=== PATIENT | male | born 1995 | race Caucasian/White ===

== ENCOUNTER 2016-11-30 23:51 | Emergency (ER) | payer BC, OTHER ==
[2016-12-01 00:01] VITALS: BP 137/86; PULSE 112; RESP 16; TEMP 98.8; O2SAT 96
--- NOTE | 2016-12-01 00:14 | PD ---
HPI Chief Complaint: Medical Clearance Time Seen by Provider: 00:11 Travel History International Travel<30 days: No Contact w/Intl Traveler<30days: No History of Present Illness HPI Patient is a 21-year-old male presenting to the emergency Department voluntarily for suicidal ideations. Patient states he did not feel safe alone. He reports that his goal tonight was to overdose on heroin however he did contact his sponsor in [place] who advised him to call 911. Patient does report a previous history of suicide attempt at age 17 where he did attempt to overdose. He reports a history of depression, he's been off of Effexor for the last month. He reports issues with his significant other that is causing him distress. He states that he drank 9-10 beers prior to arrival since 6 PM. Patient reports a history of substance abuse, type 1 diabetes. Patient has an insulin pump on his right posterior upper arm and states that it is out of insulin. He denies any nausea, vomiting, abdominal pain. He states his last A1c 4 months ago was 9.2%. He endorses tobacco use, alcohol use and occasional marijuana. He denies any visual auditory hallucinations. PFSH Past Medical History Depression: Yes Diabetes: Yes (1) Medical other: Yes (substance abuse) Social History Alcohol Use: Yes Tobacco Use: Yes Substance Use: Yes (marijuana) Allergies-Medications (Allergen,Severity, Reaction): Coded Allergies: No Known Allergies (Unverified , 12/01/16) Reported Meds & Prescriptions Reported Meds & Active Scripts Active Reported Effexor (Venlafaxine HCl) 50 Mg Tab 50 Mg PO Q12H Review of Systems Except as stated in HPI: all other systems reviewed are Neg Cardiovascular: No: Chest Pain or Discomfort Respiratory: No: Shortness of Breath Gastrointestinal: No: Nausea, Vomiting, Abdominal Pain Genitourinary: No: Frequency Neurologic: No: Dizziness, Syncope Psychiatric: Positive: Depression, Suicidal Ideations, Substance Abuse Physical Exam Narrative GENERAL: Well-developed, well-nourished, alert male. Resting comfortably in no acute distress. SKIN: Focused skin assessment warm/dry. HEAD: Atraumatic. Normocephalic. EYES: Pupils equal and round. No scleral icterus. No injection or drainage. ENT: No nasal bleeding or discharge. Mucous membranes pink and moist. NECK: Trachea midline. No JVD. CARDIOVASCULAR: Tachycardic. No murmur appreciated. RESPIRATORY: No accessory muscle use. Clear to auscultation. Breath sounds equal bilaterally. GASTROINTESTINAL: Abdomen soft, non-tender, nondistended. Hepatic and splenic margins not palpable. MUSCULOSKELETAL: No obvious deformities. No clubbing. No cyanosis. No edema. NEUROLOGICAL: Awake and alert. No obvious cranial nerve deficits. Motor grossly within normal limits. Normal speech. PSYCHIATRIC: Appropriate mood and affect; insight and judgment normal. Data Data Last Documented VS Vital Signs Date Time Temp Pulse Resp B/P Pulse Ox O2 Delivery O2 Flow Rate FiO2 12/01/16 00:01 98.8 112 16 137/86 96 Orders Complete Blood Count With Diff (12/01/16 00:08) Comprehensive Metabolic Panel (12/01/16 00:08) Urinalysis - C+S If Indicated (12/01/16 00:08) Iv Access Insert/Monitor (12/01/16 00:08) Psych Screen (12/01/16 00:08) Sodium Chloride 0.9% Flush (Ns Flush) (12/01/16 00:15) Blood Glucose (12/01/16 00:08) Drug Screen, Random Urine (12/01/16 00:08) Alcohol (Ethanol) (12/01/16 00:08) Salicylates (Aspirin) (12/01/16 00:08) Tylenol (Acetaminophen) (12/01/16 00:08) Hemoglobin (Hgb) A1c (12/01/16 00:08) Sodium Chlor 0.9% 1000 Ml Inj (Ns 1000 M (12/01/16 00:15) Blood Glucose (12/01/16 02:26) Insulin Human Regular Inj (Novolin R Inj (12/01/16 03:00) Labs Laboratory Tests Test 12/01/16 12/01/16 00:25 01:20 White Blood Count 5.8 TH/MM3 Red Blood Count 4.59 MIL/MM3 Hemoglobin 15.0 GM/DL Hematocrit 42.7 % Mean Corpuscular Volume 93.0 FL Mean Corpuscular Hemoglobin 32.7 PG Mean Corpuscular Hemoglobin 35.1 % Concent Red Cell Distribution Width 12.6 % Platelet Count 282 TH/MM3 Mean Platelet Volume 9.1 FL Neutrophils (%) (Auto) 67.0 % Lymphocytes (%) (Auto) 21.4 % Monocytes (%) (Auto) 9.1 % Eosinophils (%) (Auto) 1.7 % Basophils (%) (Auto) 0.8 % Neutrophils # (Auto) 3.9 TH/MM3 Lymphocytes # (Auto) 1.2 TH/MM3 Monocytes # (Auto) 0.5 TH/MM3 Eosinophils # (Auto) 0.1 TH/MM3 Basophils # (Auto) 0.0 TH/MM3 CBC Comment DIFF FINAL Differential Comment Sodium Level 137 MEQ/L Potassium Level 3.6 MEQ/L Chloride Level 101 MEQ/L Carbon Dioxide Level 26.9 MEQ/L Anion Gap 9 MEQ/L Blood Urea Nitrogen 12 MG/DL Creatinine 1.01 MG/DL Estimat Glomerular Filtration 92 ML/MIN Rate Random Glucose 236 MG/DL Calcium Level 9.5 MG/DL Total Bilirubin 0.6 MG/DL Aspartate Amino Transf 18 U/L (AST/SGOT) Alanine Aminotransferase 29 U/L (ALT/SGPT) Alkaline Phosphatase 122 U/L Total Protein 7.7 GM/DL Albumin 4.2 GM/DL Salicylates Level LESS THAN 1.7 MG/DL Acetaminophen Level LESS THAN 2.0 MCG/ML Ethyl Alcohol Level 117 MG/DL Urine Color LIGHT-YELLOW Urine Turbidity CLEAR Urine pH 6.5 Urine Specific [place] 1.011 Urine Protein NEG mg/dL Urine Glucose (UA) 1000 mg/dL Urine Ketones 10 mg/dL Urine Occult Blood NEG Urine Nitrite NEG Urine Bilirubin NEG Urine Urobilinogen LESS THAN 2.0 MG/DL Urine Leukocyte Esterase NEG Urine WBC 1 /hpf Microscopic Urinalysis Comment CULT NOT INDICATED Urine Opiates Screen NEG Urine Barbiturates Screen NEG Urine Amphetamines Screen NEG Urine Benzodiazepines Screen NEG Urine Cocaine Screen NEG Urine Cannabinoids Screen NEG [facility] Medical Decision Making Medical Screen Exam Complete: Yes Emergency Medical Condition: Yes Interpretation(s) Laboratory Tests Test 12/01/16 12/01/16 00:25 01:20 White Blood Count 5.8 TH/MM3 Red Blood Count 4.59 MIL/MM3 Hemoglobin 15.0 GM/DL Hematocrit 42.7 % Mean Corpuscular Volume 93.0 FL Mean Corpuscular Hemoglobin 32.7 PG Mean Corpuscular Hemoglobin 35.1 % Concent Red Cell Distribution Width 12.6 % Platelet Count 282 TH/MM3 Mean Platelet Volume 9.1 FL Neutrophils (%) (Auto) 67.0 % Lymphocytes (%) (Auto) 21.4 % Monocytes (%) (Auto) 9.1 % Eosinophils (%) (Auto) 1.7 % Basophils (%) (Auto) 0.8 % Neutrophils # (Auto) 3.9 TH/MM3 Lymphocytes # (Auto) 1.2 TH/MM3 Monocytes # (Auto) 0.5 TH/MM3 Eosinophils # (Auto) 0.1 TH/MM3 Basophils # (Auto) 0.0 TH/MM3 CBC Comment DIFF FINAL Differential Comment Sodium Level 137 MEQ/L Potassium Level 3.6 MEQ/L Chloride Level 101 MEQ/L Carbon Dioxide Level 26.9 MEQ/L Anion Gap 9 MEQ/L Blood Urea Nitrogen 12 MG/DL Creatinine 1.01 MG/DL Estimat Glomerular Filtration 92 ML/MIN Rate Random Glucose 236 MG/DL Calcium Level 9.5 MG/DL Total Bilirubin 0.6 MG/DL Aspartate Amino Transf 18 U/L (AST/SGOT) Alanine Aminotransferase 29 U/L (ALT/SGPT) Alkaline Phosphatase 122 U/L Total Protein 7.7 GM/DL Albumin 4.2 GM/DL Salicylates Level LESS THAN 1.7 MG/DL Acetaminophen Level LESS THAN 2.0 MCG/ML Ethyl Alcohol Level 117 MG/DL Urine Color LIGHT-YELLOW Urine Turbidity CLEAR Urine pH 6.5 Urine Specific [place] 1.011 Urine Protein NEG mg/dL Urine Glucose (UA) 1000 mg/dL Urine Ketones 10 mg/dL Urine Occult Blood NEG Urine Nitrite NEG Urine Bilirubin NEG Urine Urobilinogen LESS THAN 2.0 MG/DL Urine Leukocyte Esterase NEG Urine WBC 1 /hpf Microscopic Urinalysis Comment CULT NOT INDICATED Urine Opiates Screen NEG Urine Barbiturates Screen NEG Urine Amphetamines Screen NEG Urine Benzodiazepines Screen NEG Urine Cocaine Screen NEG Urine Cannabinoids Screen NEG Vital Signs Date Time Temp Pulse Resp B/P Pulse Ox O2 Delivery O2 Flow Rate FiO2 12/01/16 00:01 98.8 112 16 137/86 96 Differential Diagnosis Hyperglycemia versus DKA versus substance abuse versus mood disorder versus suicidal ideations versus electrolyte abnormality versus other Narrative Course Patient is a 21-year-old male presenting to emergency Department voluntarily for suicidal ideations. He has a history of suicide attempt at age 17. He denies any physical complaints. Patient is a type I diabetic with insulin pump to his right upper arm posteriorly. He states it is out of insulin as of 8 PM tonight. He denies any nausea, vomiting, abdominal pain. He appears well and is cooperative. Imaging ordered and pending. Discussed with patient the process for a clearance and psychiatric evaluation. He verbalized understanding. He was mildly tachycardic on arrival, IV fluids ordered and pending. [id number]-patient verbalized to RN that he wanted to leave and do with this on his own. Patient sad score was 8, this coupled with his previous suicide attempt and current plan a Munoz act was initiated. Blood glucose is 290, 8 units of subcutaneous insulin ordered. Vital signs reassessed, heart rate in the 80s. Labs reviewed, patient is medically clear for psychiatric evaluation at this time. Diagnosis Primary Impression: Medical clearance for psychiatric admission Additional Impressions: Alcohol intoxication Qualified Code: F10.920 - Alcohol intoxication, uncomplicated Suicidal ideations Condition: Stable Preethi Pritchard Dec 01, 2016 00:14
[2016-12-01] MEDS ORDERED: SODIUM CHLORIDE 0.9% FLUSH 10 ML FLUSH IVF PRN (00:15)
[2016-12-01] MEDS ORDERED: SODIUM CHLOR 0.9% 1000 ML INJ 1,000 ML IV ONE (00:15)
[2016-12-01 00:52] LABS: AUTOMATED NEUTROPHIL # 3.9 TH/MM3 (1.8-7.7); BASOPHIL % 0.8 % (0.0-2.0); EOSINOPHIL # 0.1 TH/MM3 (0-0.4); EOSINOPHIL % 1.7 % (0.0-4.0); HEMATOCRIT 42.7 % (39.0-51.0); HEMO FLAGS DIFF FINAL; LYMPH % 21.4 % (9.0-44.0); LYMPHOCYTE # 1.2 TH/MM3 (1.0-4.8); MEAN CORPUSCULAR HEMOGLOBIN 32.7 PG (27.0-34.0); MEAN CORPUSCULAR HGB CONC 35.1 % (32.0-36.0); MONO % 9.1 % (0.0-8.0); PLATELET COUNT 282 TH/MM3 (150-450); RED BLOOD COUNT 4.59 MIL/MM3 (4.50-5.90); RED CELL DISTRIBUTION WIDTH 12.6 % (11.6-17.2); WHITE BLOOD COUNT 5.8 TH/MM3 (4.0-11.0)
[2016-12-01] MEDS ORDERED: VENL50TA PO (01:21)
[2016-12-01 01:26] LABS: ALT (GPT) 29 U/L (12-78); ANION GAP 9 MEQ/L (5-15); AST (GOT) 18 U/L (15-37); BICARBONATE 26.9 MEQ/L (21.0-32.0); BLOOD UREA NITROGEN 12 MG/DL (7-18); CHLORIDE 101 MEQ/L (98-107); GLOMERULAR FILTRATION RATE 92 ML/MIN (>89); POTASSIUM 3.6 MEQ/L (3.5-5.1); SODIUM (NA) 137 MEQ/L (136-145)
[2016-12-01 01:28] LABS: ACETAMINOPHEN LESS THAN 2.0 MCG/ML (10.0-30.0); ALKALINE PHOSPHATASE 122 U/L (45-117); TOTAL BILIRUBIN ADULT 0.6 MG/DL (0.2-1.0)
[2016-12-01 02:02] LABS: AMPHETAMINE, URINE NEG (NEG); BARBITURATES, URINE NEG (NEG); COCAINE, URINE NEG (NEG)
[2016-12-01 02:13] LABS: BLOOD, URINE NEG (NEG); COMMENT (UR) CULT NOT INDICATED; CULTURE IF INDICATED CULT NOT INDICATED; GLUCOSE,URINE 1000 mg/dL (NEG); KETONE, URINE 10 mg/dL (NEG); NITRITE,URINE NEG (NEG); PH, URINE 6.5 (5.0-8.5); URINE COLOR LIGHT-YELLOW (YELLW/STRAW)
[2016-12-01 02:50] VITALS: BP 120/59; PULSE 97; RESP 16; O2SAT 96
[2016-12-01] MEDS ORDERED: INSULIN HUMAN REGULAR 1,000 UNITS/10 ML VIAL SQ ONE ×2 (03:00→15:00)
[2016-12-01 09:00] VITALS: BP 128/80; PULSE 95; RESP 18; O2SAT 98
[2016-12-01 09:54] LABS: HEMOGLOBIN A1a 1.4 %; HEMOGLOBIN A1b 2.4 %; HEMOGLOBIN Ao 79.3 %; HEMOGLOBIN LA1C 3.2 %; HEMOGLOBIN P3 4.8 %
[2016-12-01 13:42] VITALS: BP 119/63; PULSE 59; RESP 16; O2SAT 98
--- NOTE | 2016-12-01 15:14 | PD ---
History of Present Illness Chief Complaint: Medical Clearance Time Seen by Provider: 15:00 Travel History International Travel<30 Days: No Contact w/Intl Traveler<30days: No Known affected area: No Legal Status Legal Status: Munoz Act Munoz Act Comment: INTITIATED BY: CAREN HAM History of Present Illness: This is a 21-year-old male with a history of polysubstance abuse, who last night threatened to overdose on heroin. He was Munoz acted by CAREN for that reason and now states he was intoxicated when he made that threat. At the present time, he is denying any suicidal or homicidal ideation, plan or intent. He denies any psychotic symptoms. His cognition is intact and he is verbally yeison for safety. 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 He is also willing to see an outpatient therapist for further treatment. As this institution is not licensed for detox and rehabilitation, the patient's request is the least restrictive alternative. PFSH Past Medical History Anxiety: Yes Depression: Yes Diabetes: Yes (1) Patient Takes Glucophage: No Diminished Hearing: No Medical other: Yes (substance abuse) Tetanus Vaccination: Unknown Influenza Vaccination: No Past Surgical History Surgical History: No Previous Surgery Body Medical Devices: INSULIN PUMP, R POSTERIOR UPPER ARM Psychiatric History Psychiatric History Hx Psychiatric Treatment: DEPRESSION BY PCP History of Inpatient Treatment: No Guns or firearms in home: No Social History Hx Alcohol Use: Yes Hx Tobacco Use: Yes Hx Substance Use: Yes Substance Use Type: Alcohol, Crack, Heroin Hx of Substance Use Treatment: Yes Allergies-Medications (Allergen,Severity, Reaction): Coded Allergies: No Known Allergies (Unverified , 12/01/16) Reported Meds & Prescriptions Reported Meds & Active Scripts Active Reported Effexor (Venlafaxine HCl) 50 Mg Tab 50 Mg PO Q12H Review of Systems Except as stated in HPI: all other systems reviewed are Neg Exam Alert: Yes [place]: Person, Place, Date, Situation Mood: Calm Affect: Appropriate, Euthymic Speech: Clear, Logical Eye Contact: Normal Memory Intact: Immediate, Recent, Remote Insight/Judgement Adequate MDM Medical Decision Making Medical Record Reviewed: Yes Assessment/Plan Patient's Alexander act is being lifted and he is being discharged home. He was given a referral to [facility] because they can provide him with detox , rehabilitation and further treatment. The patient's cognition is intact and he is competent to verbally contract for safety. Orders Complete Blood Count With Diff (12/01/16 00:08) Comprehensive Metabolic Panel (12/01/16 00:08) Urinalysis - C+S If Indicated (12/01/16 00:08) Iv Access Insert/Monitor (12/01/16 00:08) Psych Screen (12/01/16 00:08) Sodium Chloride 0.9% Flush (Ns Flush) (12/01/16 00:15) Blood Glucose (12/01/16 00:08) Drug Screen, Random Urine (12/01/16 00:08) Alcohol (Ethanol) (12/01/16 00:08) Salicylates (Aspirin) (12/01/16 00:08) Tylenol (Acetaminophen) (12/01/16 00:08) Hemoglobin (Hgb) A1c (12/01/16 00:08) Sodium Chlor 0.9% 1000 Ml Inj (Ns 1000 M (12/01/16 00:15) Blood Glucose (12/01/16 02:26) Insulin Human Regular Inj (Novolin R Inj (12/01/16 03:00) Diet 1800 Ada Cons Carb (12/01/16 Breakfast) Diet 1800 [place] Cons Carb (12/01/16 Lunch) Insulin Human Regular Inj (Novolin R Inj (12/01/16 15:00) Results Vital Signs Date Time Temp Pulse Resp B/P Pulse Ox O2 Delivery O2 Flow Rate FiO2 12/01/16 13:42 59 16 119/63 98 Room Air 12/01/16 09:00 95 18 128/80 98 Room Air 12/01/16 02:50 97 16 120/59 96 Room Air 12/01/16 00:01 98.8 112 16 137/86 96 Laboratory Tests Test 12/01/16 12/01/16 00:25 01:20 White Blood Count 5.8 Red Blood Count 4.59 Hemoglobin 15.0 Hematocrit 42.7 Mean Corpuscular Volume 93.0 Mean Corpuscular Hemoglobin 32.7 Mean Corpuscular Hemoglobin 35.1 Concent Red Cell Distribution Width 12.6 Platelet Count 282 Mean Platelet Volume 9.1 Neutrophils (%) (Auto) 67.0 Lymphocytes (%) (Auto) 21.4 Monocytes (%) (Auto) 9.1 Eosinophils (%) (Auto) 1.7 Basophils (%) (Auto) 0.8 Neutrophils # (Auto) 3.9 Lymphocytes # (Auto) 1.2 Monocytes # (Auto) 0.5 Eosinophils # (Auto) 0.1 Basophils # (Auto) 0.0 CBC Comment DIFF FINAL Differential Comment Sodium Level 137 Potassium Level 3.6 Chloride Level 101 Carbon Dioxide Level 26.9 Anion Gap 9 Blood Urea Nitrogen 12 Creatinine 1.01 Estimat Glomerular Filtration 92 Rate Random Glucose 236 Hemoglobin A1c 8.8 Calcium Level 9.5 Total Bilirubin 0.6 Aspartate Amino Transf 18 (AST/SGOT) Alanine Aminotransferase 29 (ALT/SGPT) Alkaline Phosphatase 122 Total Protein 7.7 Albumin 4.2 Salicylates Level LESS THAN 1.7 Acetaminophen Level LESS THAN 2.0 Ethyl Alcohol Level 117 Urine Color LIGHT-YELLOW Urine Turbidity CLEAR Urine pH 6.5 Urine Specific [place] 1.011 Urine Protein NEG Urine Glucose (UA) 1000 Urine Ketones 10 Urine Occult Blood NEG Urine Nitrite NEG Urine Bilirubin NEG Urine Urobilinogen LESS THAN 2.0 Urine Leukocyte Esterase NEG Urine WBC 1 Microscopic Urinalysis Comment CULT NOT INDICATED Urine Opiates Screen NEG Urine Barbiturates Screen NEG Urine Amphetamines Screen NEG Urine Benzodiazepines Screen NEG Urine Cocaine Screen NEG Urine Cannabinoids Screen NEG Diagnosis Primary Impression: Adjustment disorder with mixed disturbance of emotions and conduct Condition: Stable Jovi uHdson MD Dec 01, 2016 15:14
== END 2016-12-01 15:59 | disposition home or self-care (01) ==
LOC: NEPD 23:51
DX: F43.25 Adjustment disorder with mixed disturbance of emotions and conduct (principal); F10.120 Alcohol abuse with intoxication, uncomplicated; E11.9 Type 2 diabetes mellitus without complications; Z72.0 Tobacco use
CPT/HCPCS: 80053; 80307; 81001; 83036; 85025; 96372; 99284; J1815; J7030

== ENCOUNTER 2017-06-10 22:13 | Emergency (ER) | payer BC, OTHER ==
[~2017-06-10] VITALS: Ht 177.8 cm; Wt 68.2 kg
[~2017-06-10 22:13] MED LIST: ALPR1TAB3 PO; CEPH-460 PO; HUMUINJ5 SQ; Insulin Pump; VENL50TA PO
[2017-06-10 22:25] VITALS: BP 111/55; PULSE 82; RESP 16; TEMP 98.6; O2SAT 98
[2017-06-10] MEDS ORDERED: INSU100C (22:34)
[2017-06-10] MEDS ORDERED: ONDANSETRON HCL 4 MG/2 ML VIAL IV PUSH ONE (22:45)
[2017-06-10 22:53] LABS: AUTOMATED NEUTROPHIL # 3.7 TH/MM3 (1.8-7.7); BASOPHIL % 0.8 % (0.0-2.0); EOSINOPHIL # 0.1 TH/MM3 (0-0.4); EOSINOPHIL % 2.4 % (0.0-4.0); HEMATOCRIT 43.2 % (39.0-51.0); HEMO FLAGS DIFF FINAL; LYMPHOCYTE # 1.2 TH/MM3 (1.0-4.8); MEAN CELL VOLUME 94.8 FL (80.0-100.0); MEAN CORPUSCULAR HGB CONC 33.8 % (32.0-36.0); MONO % 9.3 % (0.0-8.0); NEUT % 66.5 % (16.0-70.0); PLATELET COUNT 250 TH/MM3 (150-450); RED BLOOD COUNT 4.56 MIL/MM3 (4.50-5.90); RED CELL DISTRIBUTION WIDTH 12.9 % (11.6-17.2); WHITE BLOOD COUNT 5.6 TH/MM3 (4.0-11.0)
[2017-06-10 23:19] LABS: ALT (GPT) 18 U/L (12-78); ANION GAP 8 MEQ/L (5-15); AST (GOT) 21 U/L (15-37); BICARBONATE 25.7 MEQ/L (21.0-32.0); BLOOD UREA NITROGEN 15 MG/DL (7-18); CHLORIDE 106 MEQ/L (98-107); GLOMERULAR FILTRATION RATE 113 ML/MIN (>89); POTASSIUM 3.5 MEQ/L (3.5-5.1); SODIUM (NA) 140 MEQ/L (136-145)
[2017-06-10 23:21] LABS: ALKALINE PHOSPHATASE 80 U/L (45-117); CREATINE KINASE 320 U/L (39-308); TOTAL BILIRUBIN ADULT 1.1 MG/DL (0.2-1.0)
[2017-06-10 23:37] LABS: CKMB 2.4 NG/ML (0.5-3.6)
--- NOTE | 2017-06-11 01:30 | PD ---
HPI Chief Complaint: Diabetic Time Seen by Provider: 22:30 Travel History International Travel<30 days: No Contact w/Intl Traveler<30days: No Traveled to known affect area: No History of Present Illness HPI Patient is a 22-year-old male brought in by EMS due to low blood sugar. He has history of type 1 diabetes and has an insulin pump. He admits to drinking onto had not eating. He denies any medical complaints. He does say he did some meth for the first time a few days ago and has not been able to sleep since then. He denies chest pain or shortness of breath. He has not been feeling ill. He says he has had issues like this before in the past. PFS Past Medical History ADHD: Yes Anxiety: Yes Depression: Yes Diabetes: Yes (1) Patient Takes Glucophage: No Diminished Hearing: No Medical other: Yes (former IV drug user) Tetanus Vaccination: Unknown Past Surgical History Body Medical Devices: INSULIN PUMP, R POSTERIOR UPPER ARM Social History Alcohol Use: Yes (couple of times per week) Tobacco Use: Yes (1ppd) Substance Use: Yes (former IV drug user, marijuana) Allergies-Medications (Allergen,Severity, Reaction): Coded Allergies: No Known Allergies (Unverified Adverse Reaction, Unknown, 05/29/17) Reported Meds & Prescriptions Reported Meds & Active Scripts Active Alprazolam 1 Mg Tab 1 Mg PO HS PRN Reported Humalog (Insulin Lispro) 100 Unit/Ml Cartridge [Insulin Pump] Review of Systems Except as stated in HPI: all other systems reviewed are Neg General / Constitutional: No: Fever, Chills HENT: No: Headaches Cardiovascular: No: Chest Pain or Discomfort Respiratory: No: Shortness of Breath Gastrointestinal: No: Nausea, Vomiting, Diarrhea Musculoskeletal: No: Myalgias, Edema Skin: No Rash, No Change in Pigmentation Neurologic: No: Weakness, Dizziness Physical Exam Narrative GENERAL: Awake and alert, in no acute distress. SKIN: Focused skin assessment warm/dry. No wounds. HEAD: Atraumatic. Normocephalic. EYES: Pupils equal and round. No scleral icterus. ENT: Mucous membranes pink and moist. NECK: Trachea midline. No JVD. CARDIOVASCULAR: Regular rate and rhythm. No murmur appreciated. RESPIRATORY: No accessory muscle use. Clear to auscultation. Breath sounds equal bilaterally. GASTROINTESTINAL: Abdomen soft, non-tender, nondistended. MUSCULOSKELETAL: No obvious deformities. No clubbing. No cyanosis. No edema. NEUROLOGICAL: Awake and alert. No obvious cranial nerve deficits. Motor grossly within normal limits. Normal speech. PSYCHIATRIC: Appropriate mood and affect; insight and judgment normal. Data Data Last Documented VS Vital Signs Date Time Temp Pulse Resp B/P (MAP) Pulse Ox O2 Delivery O2 Flow Rate FiO2 06/10/17 22:25 98.6 82 16 111/55 (73) 98 Orders Orders Iv Access Insert/Monitor (06/10/17 22:31) Complete Blood Count With Diff (06/10/17 22:31) Creatine Kinase (Cpk) (06/10/17 22:31) Comprehensive Metabolic Panel (06/10/17 22:31) Ondansetron Inj (Zofran Inj) (06/10/17 22:45) CKMB (06/10/17 22:36) CKMB% (06/10/17 22:36) Labs Laboratory Tests Test 06/10/17 22:36 White Blood Count 5.6 TH/MM3 Red Blood Count 4.56 MIL/MM3 Hemoglobin 14.6 GM/DL Hematocrit 43.2 % Mean Corpuscular Volume 94.8 FL Mean Corpuscular Hemoglobin 32.0 PG Mean Corpuscular Hemoglobin Concent 33.8 % Red Cell Distribution Width 12.9 % Platelet Count 250 TH/MM3 Mean Platelet Volume 8.6 FL Neutrophils (%) (Auto) 66.5 % Lymphocytes (%) (Auto) 21.0 % Monocytes (%) (Auto) 9.3 % Eosinophils (%) (Auto) 2.4 % Basophils (%) (Auto) 0.8 % Neutrophils # (Auto) 3.7 TH/MM3 Lymphocytes # (Auto) 1.2 TH/MM3 Monocytes # (Auto) 0.5 TH/MM3 Eosinophils # (Auto) 0.1 TH/MM3 Basophils # (Auto) 0.0 TH/MM3 CBC Comment DIFF FINAL Differential Comment Blood Urea Nitrogen 15 MG/DL Creatinine 0.84 MG/DL Random Glucose 127 MG/DL Total Protein 6.9 GM/DL Albumin 4.2 GM/DL Calcium Level 8.5 MG/DL Alkaline Phosphatase 80 U/L Aspartate Amino Transf (AST/SGOT) 21 U/L Alanine Aminotransferase (ALT/SGPT) 18 U/L Total Bilirubin 1.1 MG/DL Sodium Level 140 MEQ/L Potassium Level 3.5 MEQ/L Chloride Level 106 MEQ/L Carbon Dioxide Level 25.7 MEQ/L Anion Gap 8 MEQ/L Estimat Glomerular Filtration Rate 113 ML/MIN Total Creatine Kinase 320 U/L Creatine Kinase MB 2.4 NG/ML Creatine Kinase MB % 0.8 % MDM Medical Decision Making Medical Screen Exam Complete: Yes Emergency Medical Condition: Yes Medical Record Reviewed: Yes Differential Diagnosis Hypoglycemia versus insulin overdose versus intoxication Narrative Course Patient is a 22-year-old male comes in due to low blood sugar. Per EMS, his glucose was 33 on arrival. He was given D50, with improvement of his blood sugar, however it did start to decrease again on the way to the hospital. Insulin pump removed from the patient. He was given some orange juice and something to eat. Labs show no acute abnormalities. Patient observed with no further drops in his blood sugar after eating. He is advised to avoid drug and alcohol use. Advised to make sure that he eats well taking insulin. Diagnosis Primary Impression: Hypoglycemia Patient Instructions: General Instructions, Hypoglycemia in a Person with Diabetes (ED) Additional Instructions: avoid alcohol and drug use. Make sure you eat while taking insulin. Follow-up with a primary care doctor. Return to the ED as needed for any worsening symptoms. Disposition: 01 DISCHARGE HOME Condition: Stable Leidy Shah MD Jun 11, 2017 01:30
== END 2017-06-11 01:49 | disposition home or self-care (01) ==
LOC: NEPE 22:13
DX: E10.649 Type 1 diabetes mellitus with hypoglycemia without coma (principal); F17.200 Nicotine dependence, unspecified, uncomplicated; F90.9 Attention-deficit hyperactivity disorder, unspecified type; F41.8 Other specified anxiety disorders; Z79.4 Long term (current) use of insulin; Z79.899 Other long term (current) drug therapy
CPT/HCPCS: 80053; 82550; 82552; 85025; 96374; 99284; J2405